=== PATIENT | female | born 1950 | race African-American/Black ===

== ENCOUNTER 2019-03-11 13:26 | Inpatient (IN) | payer OTHER, SELFPAY ==
[~2019-03-11] VITALS: Ht 165.1 cm; Wt 69.5 kg
[2019-03-11] MEDS ORDERED: KETOROLAC 30MG/ML VIAL IV STA (13:35)
[2019-03-11] MEDS ORDERED: SODIUM CHLORIDE 0.9% 1,000 ML IV ONE ×2 (13:35→15:41)
[2019-03-11] MEDS ORDERED: ONDANSETRON HCL 4MG/2ML INJ IV STA ×2 (13:35→15:41)
[2019-03-11 14:14] LABS: BASOPHILS % 0.6 % (0.0-2.0); EOSINOPHILS % 1.6 % (0.0-5.0); HEMATOCRIT. 23.5 % (36.0-48.0); HEMOGLOBIN. 7.3 g/dL (12.0-16.0); LYMPHOCYTES % 14.6 % (20.0-50.0); MEAN CORPUSCULAR HEMOGLOBIN 21.9 pg (28.0-32.0); MEAN CORPUSCULAR VOLUME 70.8 fL (81.0-99.0); MEAN PLATELET VOLUME 6.4 fl (7.4-10.4); MONOCYTES % 9.8 % (2.0-8.0); NEUTROPHILS % 73.4 % (40.0-76.0); PLATELET 449 x1000/uL (130-400); RED BLOOD CELL COUNT 3.32 mill/uL (4.2-5.4); RED CELL DISTRIBUTION WIDTH 17.3 % (11.6-14.6)
[2019-03-11 14:20] LABS: CHLORIDE 107 mEq/L (98-107)
[2019-03-11 14:43] LABS: PROTHROMBIN TIME 10.6 sec (9.6-11.0)
[2019-03-11] MEDS ORDERED: ENOXAPARIN 60MG/0.6ML SYR SUBCUT ONE (17:45)
[2019-03-11 18:12] LABS: CLARITY URINE CLEAR (CLEAR); COLOR URINE YELLOW (YELLOW); KETONES URINE 1+ (NEGATIVE); LEUKOCYTE ESTERASE URINE NEGATIVE (NEGATIVE); NITRITE URINE NEGATIVE (NEGATIVE); OCCULT BLOOD URINE NEGATIVE (NEGATIVE); PH URINE 7.5 (4.5-8.0); PROTEIN URINE NEGATIVE (NEGATIVE); SPECIFIC GRAVITY URINE 1.015 (1.005-1.030); UROBILINOGEN URINE 0.2 E.U./dL (0.2-1.0)
[2019-03-11] MEDS ORDERED: DIPHENHYDRAMINE 50MG/ML VIAL IV PRN (18:30)
[2019-03-11] MEDS ORDERED: MAGNESIUM/ALUMINUM HYDROXIDE/SIMETHICONE 30ML UDC PO PRN (18:30)
[2019-03-11] MEDS ORDERED: LORAZEPAM 0.5MG TABLET PO PRN (18:30)
[2019-03-11] MEDS ORDERED: NA PHOS,M-B/NA PHOS,DI-BA ENEMA 118ML PR PRN (18:30)
[2019-03-11] MEDS ORDERED: DOCUSATE SODIUM 100MG CAPSULE PO PRN (18:30)
[2019-03-11] MEDS ORDERED: ACETAMINOPHEN 650MG SUPP PR PRN (18:30)
[2019-03-11] MEDS ORDERED: ACETAMINOPHEN 325MG TABLET PO PRN (18:30)
[2019-03-11] MEDS ORDERED: IPRATROPIUM/ALBUTEROL 0.5-3(2.5)MG/3ML NEB INH PRN (18:30)
[2019-03-11] MEDS ORDERED: CLONIDINE 0.1MG TABLET PO PRN (18:30)
[2019-03-11] MEDS ORDERED: GUAIFENESIN 200MG/10ML SUGAR FREE UDC PO PRN (18:30)
[2019-03-11 18:51] LABS: TOTAL IRON BINDING CAPACITY 392 ug/dL (250-450)
[2019-03-11] MEDS ORDERED: MECLIZINE 25MG TABLET PO PRN (19:00)
[2019-03-11] MEDS: METOPROLOL TARTRATE 25MG TABLET PO SCH (22:00)
[2019-03-11] MEDS: HYDROCODONE/ACETAMINOPHEN 5/325MG TABLET PO PRN (22:17)
[2019-03-11 22:40] VITALS: BP 105/50
[2019-03-11 22:55] VITALS: BP 116/64
[2019-03-11 23:00] VITALS: BP 105/59
[2019-03-11 23:15] VITALS: BP 105/50
[2019-03-11 23:21] LABS: HEMATOCRIT 22.3 % (36.0-48.0); HEMOGLOBIN 6.9 g/dL (12.0-16.0)
[2019-03-11 23:23] LABS: CREATINE KINASE 55 IU/L (26-192)
[2019-03-11 23:24] LABS: CREATINE KINASE MB FRACTION < 1.0 ng/mL (0.5-3.6)
[2019-03-12] VITALS (15 sets, daily range): BP systolic 105–144; BP diastolic 50–72
[2019-03-12] MEDS: SODIUM CHLORIDE 0.45% 1,000 ML IV SCH ×2 (03:25→15:53)
[2019-03-12 07:16] LABS: BASOPHILS % 0.4 % (0.0-2.0); EOSINOPHILS % 2.1 % (0.0-5.0); HEMATOCRIT. 23.3 % (36.0-48.0); HEMOGLOBIN. 7.5 g/dL (12.0-16.0); LYMPHOCYTES % 14.6 % (20.0-50.0); MEAN CORPUSCULAR HEMOGLOBIN 23.5 pg (28.0-32.0); MEAN CORPUSCULAR VOLUME 73.4 fL (81.0-99.0); MEAN PLATELET VOLUME 6.5 fl (7.4-10.4); MONOCYTES % 11.8 % (2.0-8.0); NEUTROPHILS % 71.1 % (40.0-76.0); PLATELET 388 x1000/uL (130-400); RED BLOOD CELL COUNT 3.18 mill/uL (4.2-5.4)
[2019-03-12 07:25] LABS: CHLORIDE 111 mEq/L (98-107)
[2019-03-12 07:38] LABS: HDL CHOLESTEROL 53 mg/dL (40-59)
[2019-03-12 07:39] LABS: LDL CHOLESTEROL 76 mg/dL (5-100)
[2019-03-12 07:41] LABS: CREATINE KINASE 54 IU/L (26-192); CREATINE KINASE MB FRACTION < 1.0 ng/mL (0.5-3.6); T4 FREE 1.12 ng/dL (0.76-1.46)
[2019-03-12] MEDS ORDERED: ASPIRIN 81MG EC TABLET PO SCH (09:00)
[2019-03-12] MEDS: METOPROLOL TARTRATE 25MG TABLET PO SCH ×2 (09:00→21:00)
[2019-03-12] MEDS ORDERED: FAMOTIDINE 20MG/2ML VIAL IV SCH (09:00)
[2019-03-12] MEDS: HYDROCODONE/ACETAMINOPHEN 5/325MG TABLET PO PRN ×2 (12:33→15:52)
[2019-03-12] MEDS ORDERED: SORBITOL 70% SOLN 30ML PO NR ×3 (15:15→21:45)
[2019-03-12] MEDS: ONDANSETRON HCL 4MG/2ML INJ IV PRN ×2 (15:50→21:50)
[2019-03-12 15:58] LABS: *AMPHETAMINES SCREEN URINE NEGATIVE (NEGATIVE); *BARBITURATES SCREEN URINE NEGATIVE (NEGATIVE); *BENZODIAZEPINES SCREEN URINE NEGATIVE (NEGATIVE); *COCAINE SCREEN URINE NEGATIVE (NEGATIVE); METHADONE URINE SCREEN NEGATIVE (NEGATIVE); OPIATES URINE SCREEN PRESUMTIVE POSITIVE (NEGATIVE)
[2019-03-12 15:59] LABS: CANNABINOID URINE SCREEN NEGATIVE (NEGATIVE); PHENCYCLIDINE URINE SCREEN NEGATIVE (NEGATIVE)
[2019-03-12] MEDS ORDERED: IRON SUCROSE COMPLEX 100 MG/5 ML ML IV SCH (16:00)
[2019-03-12] MEDS: DEXT 5%/0.45% NACL 1000ML 1,000 ML IV SCH (19:15)
[2019-03-12] MEDS ORDERED: METOPROLOL TARTRATE 25MG TABLET PO SCH (21:00)
[2019-03-12] MEDS: PANTOPRAZOLE SODIUM 40 MG/VIAL IV SCH (21:00)
[2019-03-12 21:51] LABS: HEMATOCRIT 28.2 % (36.0-48.0); HEMOGLOBIN 8.9 g/dL (12.0-16.0)
[2019-03-12 21:56] LABS: PROTHROMBIN TIME 10.2 sec (9.6-11.0)
[2019-03-13] VITALS (7 sets, daily range): BP systolic 95–138; BP diastolic 63–68
[2019-03-13] MEDS: ONDANSETRON HCL 4MG/2ML INJ IV PRN (05:37)
[2019-03-13 06:48] LABS: BASOPHILS % 0.5 % (0.0-2.0); EOSINOPHILS % 2.1 % (0.0-5.0); HEMATOCRIT. 27.5 % (36.0-48.0); HEMOGLOBIN. 8.9 g/dL (12.0-16.0); LYMPHOCYTES % 11.4 % (20.0-50.0); MEAN CORPUSCULAR HEMOGLOBIN 23.7 pg (28.0-32.0); MEAN CORPUSCULAR VOLUME 73.5 fL (81.0-99.0); MEAN PLATELET VOLUME 6.6 fl (7.4-10.4); MONOCYTES % 10.2 % (2.0-8.0); NEUTROPHILS % 75.8 % (40.0-76.0); PLATELET 371 x1000/uL (130-400); RED BLOOD CELL COUNT 3.74 mill/uL (4.2-5.4); RED CELL DISTRIBUTION WIDTH 18.8 % (11.6-14.6)
[2019-03-13 06:52] LABS: PARTIAL THROMBOPLASTIN TIME 22.2 sec (23.4-31.0); PROTHROMBIN TIME 10.4 sec (9.6-11.0)
[2019-03-13 06:53] LABS: CHLORIDE 112 mEq/L (98-107)
[2019-03-13] MEDS: METOPROLOL TARTRATE 25MG TABLET PO SCH ×2 (08:39→20:57)
[2019-03-13] MEDS: PANTOPRAZOLE SODIUM 40 MG/VIAL IV SCH ×2 (08:40→20:56)
[2019-03-13] MEDS ORDERED: BACTERIOSTATIC SODIUM CHLORIDE 0.9% 30ML VIAL IJ ONE (09:31)
[2019-03-13] MEDS ORDERED: SIMETHICONE 40 MG/0.6 ML 30ML ONE (09:31)
[2019-03-13] MEDS ORDERED: POTASSIUM CHLORIDE 20MEQ TABLET SR PO NR (13:15)
[2019-03-13] MEDS: DEXT 5%/0.45% NACL 1000ML 1,000 ML IV SCH (13:25)
[2019-03-13] MEDS ORDERED: MIDAZOLAM HCL 5 MG/5 ML VIAL ONE (16:12)
[2019-03-13] MEDS ORDERED: FENTANYL CITRATE/PF 50MCG/ML 2ML VIAL ONE (16:13)
[2019-03-13] MEDS ORDERED: MIDAZOLAM HCL 5 MG/5 ML VIAL IV PRN (16:14)
[2019-03-13] MEDS ORDERED: FENTANYL CITRATE/PF 50MCG/ML 2ML VIAL IV PRN (16:15)
[2019-03-14] VITALS: BP 98/55
[2019-03-14 04:00] VITALS: BP_SYST 96; BP_SYST 99; BP_DIAS 50; BP_DIAS 71
[2019-03-14 08:00] VITALS: BP 104/63
[2019-03-14] MEDS: METOPROLOL TARTRATE 25MG TABLET PO SCH (09:00)
[2019-03-14] MEDS: PANTOPRAZOLE SODIUM 40 MG/VIAL IV SCH (09:00)
[2019-03-14 15:42] LABS: HEMATOCRIT 27.8 % (36.0-48.0); HEMOGLOBIN 8.8 g/dL (12.0-16.0); MEAN CORPUSCULAR HEMOGLOBIN 23.6 pg (28.0-32.0); MEAN CORPUSCULAR VOLUME 74.6 fL (81.0-99.0); PLATELET 392 x1000/uL (130-400); RED BLOOD CELL COUNT 3.72 mill/uL (4.2-5.4); RED CELL DISTRIBUTION WIDTH 19.3 % (11.6-14.6)
[2019-03-14 15:54] LABS: CHLORIDE 110 mEq/L (98-107)
[2019-03-14 16:28] VITALS: BP 104/53
== END 2019-03-14 17:00 | disposition home or self-care (01) | DRG 73 ==
LOC: ER 13:26 → 6WST 17:48 → SUPCPDRO 18:21 → ENRESERV 20:20
PROVIDERS: ADMIT Internal Medicine; ATTEND Internal Medicine
PROC: 30233N1 Transfusion of Nonautologous Red Blood Cells into Peripheral Vein, Percutaneous Approach (ICD-10-PCS; 2019-03-11)
PROC: 0DB58ZX Excision of Esophagus, Via Natural or Artificial Opening Endoscopic, Diagnostic (ICD-10-PCS; principal; 2019-03-13)
PROC: 0DJD8ZZ Inspection of Lower Intestinal Tract, Via Natural or Artificial Opening Endoscopic (ICD-10-PCS; 2019-03-13)
DX: G90.8 Other disorders of autonomic nervous system (principal); K22.11 Ulcer of esophagus with bleeding; I50.33 Acute on chronic diastolic (congestive) heart failure; K29.71 Gastritis, unspecified, with bleeding; E46 Unspecified protein-calorie malnutrition; I47.1 Supraventricular tachycardia; K22.10 Ulcer of esophagus without bleeding; I48.0 Paroxysmal atrial fibrillation; D50.9 Iron deficiency anemia, unspecified; K44.9 Diaphragmatic hernia without obstruction or gangrene; E86.0 Dehydration; K59.00 Constipation, unspecified; N18.9 Chronic kidney disease, unspecified; N20.0 Calculus of kidney; N26.1 Atrophy of kidney (terminal); N28.1 Cyst of kidney, acquired; H81.49 Vertigo of central origin, unspecified ear; Z82.49 Family history of ischemic heart disease and other diseases of the circulatory system; Z87.19 Personal history of other diseases of the digestive system; R22.9 Localized swelling, mass and lump, unspecified; K22.8 Other specified diseases of esophagus; K22.0 Achalasia of cardia; D69.6 Thrombocytopenia, unspecified; Z68.25 Body mass index [BMI] 25.0-25.9, adult
CPT/HCPCS: 36415; 71045; 71275; 76700; 80048; 80061; 80305; 81003; 82270; 82378; 82550; 82553; 82728; 83036; 83540; 83550; 84439; 84443; 84484; 85014; 85018; 85027; 85049; 85379; 85384; 86850; 86900; 86920; 88305; 88312; 93005; 93306; 93970; 96374; 97161; 99152; 99285; C9113; J1885; J2250; J2405; J3010; J3490; J7030; P9016; P9021; G0500